=== PATIENT | male | born 1985 | race Hispanic/Latino ===

== ENCOUNTER 2017-06-23 11:47 | Emergency (ER) | payer OTHER, SELFPAY ==
[2017-06-23] MEDS ORDERED: Ibuprofen 800 MG TAB ONE (14:00)
== END 2017-06-23 14:05 | disposition home or self-care (01) ==
LOC: ERS 11:47
DX: H10.9 Unspecified conjunctivitis (principal); F41.9 Anxiety disorder, unspecified; F17.220 Nicotine dependence, chewing tobacco, uncomplicated
CPT/HCPCS: 99283

== ENCOUNTER 2018-06-07 13:40 | Emergency (ER) | payer SELFPAY | END 2018-06-07 14:50 | disposition home or self-care (01) | LOC: ERS 13:40 | DX: H10.9 Unspecified conjunctivitis (principal); L30.9 Dermatitis, unspecified; F17.210 Nicotine dependence, cigarettes, uncomplicated | CPT/HCPCS: 99283 ==

== ENCOUNTER 2018-07-15 09:46 | Emergency (ER) | payer SELFPAY ==
--- NOTE | 2018-07-15 11:51 | RAD ---
KUB: DATE: 07/15/2018. PROVIDED CLINICAL HISTORY: Abdominal pain. FINDINGS: The abdominal bowel gas pattern is nonspecific. No radiographically apparent urinary tract calculi. The osseous structures appear unremarkable. IMPRESSION: Nonspecific bowel gas pattern. POS: C
== END 2018-07-15 11:39 | disposition home or self-care (01) ==
LOC: ERS 09:46
DX: K59.00 Constipation, unspecified (principal); L30.9 Dermatitis, unspecified; F17.210 Nicotine dependence, cigarettes, uncomplicated
CPT/HCPCS: 74018

== ENCOUNTER 2019-11-26 15:18 | Emergency (ER) | payer OTHER, SELFPAY ==
[2019-11-27 11:52] LABS: SARS-CoV-2 MS2 Positive; SARS-CoV-2 N Gene Negative; SARS-CoV-2 S Gene Negative; SARS-CoV-2 orf1ab Negative
== END 2019-11-26 16:40 | disposition home or self-care (01) ==
LOC: ERS 15:18
DX: B34.9 Viral infection, unspecified (principal); R51 Headache; R68.83 Chills (without fever); Z20.828 Contact with and (suspected) exposure to other viral communicable diseases; F17.210 Nicotine dependence, cigarettes, uncomplicated
CPT/HCPCS: 87635; 99283; U0003

== ENCOUNTER 2019-12-11 16:38 | Emergency (ER) | payer OTHER, SELFPAY ==
[2019-12-12 17:48] LABS: SARS-CoV-2 MS2 Positive; SARS-CoV-2 N Gene Negative; SARS-CoV-2 S Gene Negative; SARS-CoV-2 orf1ab Negative
== END 2019-12-11 17:12 | disposition home or self-care (01) ==
LOC: ERS 16:38
DX: J02.9 Acute pharyngitis, unspecified (principal); Z20.828 Contact with and (suspected) exposure to other viral communicable diseases; Z87.891 Personal history of nicotine dependence
CPT/HCPCS: 87635; 99283; U0003

== ENCOUNTER 2019-12-14 01:03 | Emergency (ER) | payer SELFPAY | END 2019-12-14 01:53 | LOC: ERS 01:03 | DX: F15.90 Other stimulant use, unspecified, uncomplicated (principal); F17.220 Nicotine dependence, chewing tobacco, uncomplicated | CPT/HCPCS: 93005 ==

== ENCOUNTER 2020-12-18 14:32 | Emergency (ER) | payer OTHER | END 2020-12-18 15:46 | disposition home or self-care (01) | LOC: ERS 14:32 | DX: J01.00 Acute maxillary sinusitis, unspecified (principal); F17.220 Nicotine dependence, chewing tobacco, uncomplicated | CPT/HCPCS: 99283 ==

== ENCOUNTER 2021-12-19 04:25 | Emergency (ER) | payer SELFPAY ==
[2021-12-19] MEDS ORDERED: Lorazepam 2 MG/ML VIAL ONE (06:02)
[2021-12-19] MEDS ORDERED: Haloperidol Lactate 5 MG/ML VIAL ONE (06:03)
[2021-12-19 07:10] LABS: #Basophils 0.1 thou/uL (0.0-0.2); #Lymphocytes 1.9 thou/uL (1.20-3.40); #Neutrophils 9.6 thou/uL (1.40-6.50); %Basophils 0.7 % (0.0-1.0); %Eosinophils 0.1 % (0.0-10.0); %Lymphocytes 15.1 % (21.0-51.0); %Monocytes 8.2 % (0.0-10.0); %Neutrophils 75.9 % (42.0-75.0); Hemoglobin 17.2 g/dL (14.0-18.0); Mean Corpuscular HGB CONC 32.5 g/dL (32.0-36.0); Mean Corpuscular Hemoglobin 31.9 pg (27.0-31.0); Mean Corpuscular Volume 98.1 fL (78.0-98.0); Mean Platelet Volume 6.9 fL (7.4-10.4); Platelet Count 303 thou/uL (130-400); RBC Distribution Width 12.3 % (11.5-14.5); Red Blood Cell (RBC) Count 5.39 mill/uL (4.70-6.10); White Blood Cell (WBC) Count 12.6 thou/uL (4.8-10.8)
[2021-12-19 07:33] LABS: ALT (SGPT) 79 U/L (8-55); AST (SGOT) 83 U/L (5-34); Acetaminophen Less than 10.0 mcg/mL (10.0-30.0); Albumin 4.9 g/dL (3.5-5.0); Alcohol Less than 10 mg/dL (Less than 10); Alkaline Phosphatase 32 U/L (40-110); Anion Gap 19 mmol/L (10-20); BUN (Urea Nitrogen) 22 mg/dL (8.9-20.6); Bilirubin, Total 1.4 mg/dL (0.2-1.2); CK (CPK) 2831 U/L (30-200); Calc. Creatinine Clearance 0 mL/min (70-130); Calcium 9.7 mg/dL (7.8-10.44); Carbon Dioxide 21 mmol/L (22-29); Chloride 106 mmol/L (98-107); Globulin 3.9 g/dL (2.4-3.5); Glucose 110 mg/dL (70-105); Potassium 3.4 mmol/L (3.5-5.1); Protein, Total 8.8 g/dL (6.0-8.3); Salicylate Less than 8.0 mg/dL (15.0-30.0); Sodium 143 mmol/L (136-145)
== END 2021-12-19 07:45 ==
LOC: ERS 04:25
DX: Z02.89 Encounter for other administrative examinations (principal); F19.10 Other psychoactive substance abuse, uncomplicated; R00.0 Tachycardia, unspecified; Z87.19 Personal history of other diseases of the digestive system; Z87.891 Personal history of nicotine dependence
CPT/HCPCS: 80053; 80307; 82550; 85025; 93005; 96372; J1630; J2060

== ENCOUNTER 2022-01-24 10:05 | Emergency (ER) | payer SELFPAY | END 2022-01-24 11:52 | disposition home or self-care (01) | LOC: ERS 10:05 | DX: J06.9 Acute upper respiratory infection, unspecified (principal); Z87.891 Personal history of nicotine dependence | CPT/HCPCS: 99283 ==